=== PATIENT | male | born 1960 | race Caucasian/White ===

== ENCOUNTER 2020-07-04 07:30 | Inpatient (IN) | payer OTHER ==
[2020-07-04 07:55] LABS: #Eosinphils 0.1 thou/uL (0.0-0.7); #Lymphocytes 1.4 thou/uL (1.20-3.40); #Monocytes 1.6 thou/uL (0.11-0.59); #Neutrophils 7.9 thou/uL (1.40-6.50); %Basophils 0.4 % (0.0-1.0); %Eosinophils 0.9 % (0.0-10.0); %Lymphocytes 12.5 % (21.0-51.0); %Monocytes 14.2 % (0.0-10.0); %Neutrophils 71.9 % (42.0-75.0); Hemoglobin 10.8 g/dL (14.0-18.0); Mean Corpuscular HGB CONC 31.5 g/dL (32.0-36.0); Mean Corpuscular Hemoglobin 25.5 pg (27.0-31.0); Mean Corpuscular Volume 80.8 fL (78.0-98.0); Mean Platelet Volume 8.5 fL (7.4-10.4); Platelet Count 179 thou/uL (130-400); Red Blood Cell (RBC) Count 4.23 mill/uL (4.70-6.10)
[2020-07-04 08:07] LABS: INR-International Normal Ratio 1.1; PTT 32.1 sec (22.9-36.1); Prothrombin Time 14.9 sec (12.0-14.7)
--- NOTE | 2020-07-04 08:14 | RAD ---
EXAM: Single view of the chest HISTORY: Cough and shortness of breath COMPARISON: 05/30/2014 FINDINGS: Single view of the chest shows a normal sized cardiomediastinal silhouette. There is bilat eral pulmonary vascular enlargement. Increased interstitial markings are present. There is questionable opacity in the left costophrenic angle. No acute osseous abnormality. IMPRESSION: Left basilar atelectasis versus infiltrate.
[2020-07-04 08:23] LABS: ALT (SGPT) 35 U/L (8-55); AST (SGOT) 69 U/L (5-34); Albumin 3.8 g/dL (3.4-4.8); Alkaline Phosphatase 75 U/L (40-110); Anion Gap 15 mmol/L (10-20); BUN (Urea Nitrogen) 35 mg/dL (8.4-25.7); Bilirubin, Total 1.7 mg/dL (0.2-1.2); CK (CPK) 806 U/L (30-200); Calc. Creatinine Clearance 0 mL/min (70-130); Calcium 8.8 mg/dL (7.8-10.44); Carbon Dioxide 22 mmol/L (23-31); Chloride 104 mmol/L (98-107); Globulin 3.7 g/dL (2.4-3.5); Glucose 222 mg/dL (80-115); Potassium 4.2 mmol/L (3.5-5.1); Protein, Total 7.5 g/dL (5.8-8.1); Sodium 137 mmol/L (136-145)
[2020-07-04] MEDS ORDERED: Albumin 5% 500 ML ONE (09:26)
[2020-07-04] MEDS ORDERED: EPINEPHrine 1 MG/ML AMP ONE (09:26)
[2020-07-04] MEDS ORDERED: Bupivacaine PF 0.5% 30 ML VIAL ONE (09:26)
[2020-07-04] MEDS ORDERED: Dexamethasone 4 mg/ml Vial ONE (09:26)
[2020-07-04] MEDS ORDERED: Midazolam HCl 5 mg/5 ml Vial ONE (09:43)
[2020-07-04] MEDS ORDERED: Midazolam HCl 2 mg/2 ml Vial ONE (09:43)
[2020-07-04] MEDS ORDERED: Fentanyl 100 MCG/2 ML VIAL ONE (09:43)
[2020-07-04] MEDS ORDERED: Vecuronium 10 MG VIAL ONE ×3 (09:44→12:58)
[2020-07-04] MEDS ORDERED: Dexmedetomidine 200 MCG/2 ML VIAL ONE (09:44)
[2020-07-04] MEDS ORDERED: Heparin 10,000 UNITS/1 ML VIAL 30,000 UNITS in Sodium Chloride 0.9% 1,000 ML FS SCH (09:45)
--- NOTE | 2020-07-04 10:02 | HP ---
INDICATION FOR ADMISSION: Acute inferior myocardial infarction, ST-segment elevation IN. HISTORY OF PRESENT ILLNESS: This is a very pleasant 60-year-old gentleman, started feeling bad on Tuesday. He went to the emergency room. He was checked out and was found to be negative for COVID. He had complaints of shortness of breath and chest tightness. He then presented again today to the emergency room here in [facility], complaining of some chest discomfort. He underwent further evaluation and EKG was noted to have ST-segment elevation inferiorly compatible with acute inferior ST-segment elevation myocardial infarction inferiorly. He also continued to have some chest discomfort. He rated about 4 to 5/10. His cardiac enzymes are positive for myocardial infarction. He was advised to undergo acute cardiac catheterization with possible intervention. He has had no previous cardiac history. He does have hypertension and also has dyslipidemia as well as diabetes. He has had insulin-dependent diabetes for about 10 years. He has had no other significant past medical history. I think he has had some cholecystectomy in the past and had back surgery on 3 different occasions. SOCIAL HISTORY: He lives alone. He has no significant alcohol use. He smoked many years ago, but has not smoked for many years. He has adult children, who are alive and well. No significant family history of coronary artery disease. ALLERGIES: NONE. MEDICATIONS: Included, 1. Levemir Flexpen, he takes 15 units twice a day. 2. Lisinopril 20 mg once a day. 3. Metformin 1000 mg twice a day. 4. He takes insulin, NovoLog FlexPen 10 units twice a day with meals. 5. Pravastatin 40 mg once a day. REVIEW OF SYSTEMS: A 12-point review of systems is unremarkable except what is noted in the history of present illness. He denies any HEENT complaints. No GI complaints. neurological complaints. No urological complaints and no other significant complaints except what is noted in the history of present illness with his shortness of breath and chest tightness. PHYSICAL EXAMINATION: GENERAL: Reveals a well-developed, well-nourished gentleman. VITAL SIGNS: Blood pressure at this time is 92/56, heart rate is 88 and regular. He has a sinus rhythm, O2 saturations are stable. He has a respiratory rate of about 18 breaths per minute. He is afebrile. HEENT: Shows the head to be normocephalic and atraumatic. CHEST: Clear to auscultation without rales, rhonchi, or wheezing. CARDIOVASCULAR: Reveals a regular rate and rhythm at this time. He has normal S1, S2. I cannot hear any significant murmurs, heaves, thrills, bruits, or rubs. ABDOMEN: Soft and nontender. Positive bowel sounds are present. EXTREMITIES: Show no clubbing, cyanosis, or edema. NEUROLOGIC: He appears to be fully intact , no gross focal motor deficits. DIAGNOSTIC STUDIES: His EKG is noted above shows ST-segment elevation inferiorly compatible with an ST-segment elevation myocardial infarction. He has some nonspecific T-waves laterally. He has decreased R-wave progression in V1 and V2. LABORATORY DATA: His WBC is 11, hemoglobin is 10.8, and platelet count is 170,000. His sodium was 137, did not see measurement of the potassium, CO2 was 22, chloride was 104, BUN was 35, and creatinine is 1.82 and in 2017 was 1.53. Blood sugar is 222. Total bilirubin was 1.7, which is elevated. AST was 69. His CPK was 806 with a CPK MB of 16 and troponin I of 13.7. He is negative for COVID. Urinalysis was not done. INR was 1.1. His chest x-ray was performed today. This shows some left basilar atelectasis with possible infiltrate. IMPRESSION: 1. Acute inferior myocardial infarction with ST-segment elevation. He will be taken to the cardiac electrical laboratory technician. I explained the procedure and the risks to him to include bleeding, infection, possible myocardial infarction, cerebrovascular accident, renal insufficiency, allergic contrast reaction, even the possibility of . He understands and agrees to proceed. We will plan for urgent or emergent cardiac catheterization. 2. History of hypertension. His blood pressure is actually on the low side at this time. We will hold his medications. He has been on lisinopril in the past. Given his renal insufficiency and his hypotension at this time, we will hold that medication. 3. Hypercholesterolemia. We will switch him over Lipitor 40 mg once a day from his pravastatin. I do not have a cholesterol level. This will be need to be evaluated. We will certainly try to find any recent laboratory data. 4. Insulin-dependent diabetes. We will continue with sliding scale insulin. We will ask the hospitalist service for consultation. 5. What appears to be a severe 3-vessel coronary artery disease by cardiac catheterization. The left anterior descending artery is 100% occluded. The distal left circumflex is 100% occluded, the right coronary is 100% occluded. The right coronary is a nondominant vessel. It was very small, which fills by collaterals. The distal left anterior descending artery was also seen filling late by some collaterals as well as the distal obtuse marginal branches and posterior descending artery from the circumflex also seen filling by some collaterals. 6. History of cardiomyopathy. Ejection fraction is 20% to 25% by left ventriculogram. This is ischemic cardiomyopathy, which may improve if the patient undergoes revascularization. We will discuss this case with the CT surgeons for a rather urgent bypass surgery. Job ID: [id number] [facility]rika
[2020-07-04] MEDS ORDERED: Milrinone 10 MG/10 ML VIAL ONE (10:05)
[2020-07-04] MEDS ORDERED: CEFAZOLIN 2 GM in Premix Bag 1 BAG IVPB SCH (10:30)
--- NOTE | 2020-07-04 10:53 | CON ---
DATE OF CONSULTATION: 07/04/2020 HISTORY OF PRESENT ILLNESS: Mr. Mccarthy is a 60-year-old gentleman, who presented to the emergency department with chest pain today. He was found to have positive troponins. He was taken to the labour market economist and found to have severe three-vessel disease. Right coronary is nondominant and occluded. His LAD is occluded. The first diagonal, which is a large branch has critical stenosis. The highest OM is widely patent. The terminal OM, which terminates in a left-sided PDA is occluded. Ejection fraction on ventriculogram is approximately 20%. I have been asked to see him for emergency coronary artery bypass grafting. PAST MEDICAL HISTORY: 1. Hypertension. 2. Diabetes mellitus. 3. Dyslipidemia. SOCIAL HISTORY: He lives alone. He does not use alcohol. He smoked many years ago, but has quit. ALLERGIES: NONE. CURRENT MEDICATIONS: 1. Levemir 15 units b.i.d. 2. Lisinopril 20 mg daily. 3. Metformin 1000 mg b.i.d. 4. NovoLog 10 units with meals. 5. Pravastatin 40 mg daily. REVIEW OF SYSTEMS: Not performed due to the acuity of situation. PHYSICAL EXAMINATION: GENERAL: This is a very pleasant, well-developed, well-nourished male, resting comfortably in the recovery room. VITAL SIGNS: His temperature is 98.8, pulse is 60 and regular. He is in sinus rhythm. Blood pressure is 130/72. HEENT: Sclerae nonicteric. Pupils equally round bilaterally. NECK: Supple without bruits. CHEST: Clear bilaterally. HEART: Rhythm is regular without murmur. ABDOMEN: Soft and nontender. EXTREMITIES: There is no edema. VASCULAR: Palpable carotid, radial, femoral, or dorsalis pedis pulses bilaterally. VENOUS: There are no venous varicosities or venous stasis changes. PSYCHIATRIC: He is awake, alert, and oriented to person, place, and time. LABORATORY DATA: Of note, hemoglobin is 10.8, platelet count is 179,000. Creatinine is 1.82, potassium is 4.2, troponin is 34. PT/INR is 1.1 with a PTT of 32. Chest x-ray has been performed in the emergency department, which shows no dominant lung mass. Lung mann are clear bilaterally. ASSESSMENT AND PLAN: For urgent coronary artery bypass grafting, potential targets included LAD, first diagonal branch, and terminal OM. It has been discussed with the patient, he is agreeable for us to proceed. Job ID: [id number]
[2020-07-04] MEDS ORDERED: PHENYLEPHRINE-NS 100 MCG/ML 10 ML SYRINGE ONE ×2 (12:20→12:58)
[2020-07-04] MEDS ORDERED: Lidocaine 2% PF 100 mg/5 ml Syringe ONE (12:58)
[2020-07-04] MEDS ORDERED: Glycopyrrolate 0.2 MG/ML 5 ML SYRINGE ONE (12:58)
[2020-07-04] MEDS ORDERED: Norepinephrine 4 MG/4 ML VIAL ONE (12:58)
[2020-07-04] MEDS ORDERED: ePHEDrine 50 MG/ML VIAL ONE (12:58)
[2020-07-04] MEDS ORDERED: Lidocaine 1% PF 5 ML VIAL ONE ×2 (12:58)
[2020-07-04] MEDS ORDERED: Ondansetron PF 4 MG/2 ML Vial ONE (12:58)
[2020-07-04] MEDS ORDERED: Heparin 5,000 UNITS/ML VIAL ONE (12:58)
[2020-07-04] MEDS ORDERED: Sodium Bicarb 50 MEQ/50 ML Abboject 8.4% SYRINGE ONE (12:58)
[2020-07-04] MEDS ORDERED: Heparin 30,000 units/30 ml VIAL ONE (12:58)
[2020-07-04] MEDS ORDERED: Thrombin 5000 UNITS/5 ML VIAL ONE (12:58)
[2020-07-04] MEDS ORDERED: Papaverine 60 MG/2 ML VIAL ONE (12:58)
[2020-07-04] MEDS ORDERED: Magnesium Sulfate 1 GM/2 ML VIAL ONE (12:58)
[2020-07-04] MEDS ORDERED: Protamine Sulfate 250 MG/25 ML VIAL ONE (12:58)
[2020-07-04] MEDS ORDERED: Nitroglycerin 50 MG/250 ML BOT ONE (12:58)
[2020-07-04] MEDS ORDERED: Aminocaproic Acid 5 GM/20 ML VIAL ONE (12:58)
[2020-07-04] MEDS ORDERED: Cardioplegic Soln 1,000 ML BAG ONE (12:58)
[2020-07-04] MEDS ORDERED: Calcium Chloride 1 GM/10 ML Abboject SYRINGE ONE (12:58)
[2020-07-04] MEDS ORDERED: Dexamethasone 20 MG/5 ML VIAL ONE (12:58)
[2020-07-04] MEDS ORDERED: Mannitol 12.5 GM/50 ML ONE (12:58)
[2020-07-04] MEDS ORDERED: Potassium Chloride 60 MEQ/30 ML VIAL ONE (12:58)
[2020-07-04] MEDS ORDERED: Ketorolac Tromethamine 30 MG/ML VIAL ONE (12:58)
[2020-07-04] MEDS ORDERED: Nitroglycerin 50 MG/250 ML BOT 250 ML IVPB PRN (14:00)
[2020-07-04] MEDS ORDERED: Guaifenesin DM 100-10/5 ML UDCUP PO PRN (14:00)
[2020-07-04] MEDS ORDERED: Acetaminophen 325 MG TAB PO PRN (14:00)
[2020-07-04] MEDS ORDERED: Mag-Al 1200 mg/1200 mg/30 ML UDCUP PO PRN (14:00)
[2020-07-04] MEDS ORDERED: Bisacodyl 10 MG SUPP PR PRN (14:00)
[2020-07-04] MEDS ORDERED: Post-Op Insulin Drip Protocol IVPB ONE (14:00)
[2020-07-04] MEDS ORDERED: Fentanyl 100 MCG/2 ML VIAL SLOW IVP PRN ×2 (14:00)
[2020-07-04] MEDS ORDERED: Bisacodyl 5 MG TAB PO PRN (14:00)
[2020-07-04] MEDS ORDERED: Norepinephrine 8 MG/0.9% NS 250 ML IVPB PRN (14:00)
[2020-07-04] MEDS ORDERED: Hetastarch 6% 500 ML 500 ML IVPB PRN (14:00)
[2020-07-04] MEDS ORDERED: Ondansetron PF 4 MG/2 ML Vial IVP PRN (14:00)
[2020-07-04] MEDS ORDERED: HYDROcodone/Acetaminophen 5/325 mg Tablet PO PRN (14:00)
[2020-07-04] MEDS ORDERED: Morphine 2 MG/ML VIAL SLOW IVP PRN (14:00)
[2020-07-04] MEDS ORDERED: D5 1/2 NS w/20 mEq KCL 1,000 ML IV SCH (14:00)
[2020-07-04] MEDS ORDERED: Potassium Chloride 20 MEQ/100 ML PREMIX BAG IVPB PRN (14:00)
[2020-07-04] MEDS ORDERED: traMADol HCl 50 MG TAB PO PRN ×2 (14:00)
[2020-07-04] MEDS ORDERED: hydrALAZINE 20 MG/ML VIAL SLOW IVP PRN (14:00)
--- NOTE | 2020-07-04 14:13 | RAD ---
XR Chest 1 View Portable History: Post open heart surgery Comparison: Radiograph same day Findings: Defibrillator pad has been removed. Multiple midline sternotomy wires. Right subclavian central venous catheter tip projects in the right atrium. The mediastinal drains are in good location. No high-grade pneumothorax. Trace effusions. Low-grade pulmonary edema. Old left mid clavicular fracture. Impression: Uncomplicated postoperative appearance.
[2020-07-04 14:14] LABS: Actual Bicarbonate (HCO3a) 21.4 mEq/L (22-28); Analyzer IN Cardio OR; Base Excess (BEa) -3.1 mEq/L (-2.0 to +3.0); Calcium, Ionized (arterial) 1.02 mmol/L (1.12-1.30); Carboxyhemoglobin (COHb) 1.1 gm% (0.0-3.0); Hemoglobin (Hb) 8.5 g/dL (14.0-18.0); O2 Tension (PaO2), arterial 475.5 mmHg (> 80.0); Potassium - ABG Lab 4.04 mmol/L (3.70-5.30); pH, Arterial 7.39 (7.35-7.45)
[2020-07-04 14:14] LABS: Analyzer IN Cardio OR; Base Excess (BEa) -5.8 mEq/L (-2.0 to +3.0); CO2 Tension 46.9 mmHg (35.0-45.0); Calcium, Ionized (arterial) 1.06 mmol/L (1.12-1.30); Carboxyhemoglobin (COHb) 0.8 gm% (0.0-3.0); Hemoglobin (Hb) 9.9 g/dL (14.0-18.0); O2 Tension (PaO2), arterial 112.6 mmHg (> 80.0); pH, Arterial 7.27 (7.35-7.45)
[2020-07-04 14:14] LABS: Actual Bicarbonate (HCO3a) 30.9 mEq/L (22-28); Analyzer IN Cardio OR; Base Excess (BEa) 4.1 mEq/L (-2.0 to +3.0); Calcium, Ionized (arterial) 0.87 mmol/L (1.12-1.30); Carboxyhemoglobin (COHb) 1.2 gm% (0.0-3.0); Hemoglobin (Hb) 8.5 g/dL (14.0-18.0); O2 Tension (PaO2), arterial 230.8 mmHg (> 80.0); Potassium - ABG Lab 3.71 mmol/L (3.70-5.30); pH, Arterial 7.33 (7.35-7.45)
[2020-07-04 14:15] LABS: Actual Bicarbonate (HCO3a) 22.5 mEq/L (22-28); Analyzer IN Cardio OR; Base Excess (BEa) -3.5 mEq/L (-2.0 to +3.0); CO2 Tension 44.7 mmHg (35.0-45.0); Calcium, Ionized (arterial) 1.08 mmol/L (1.12-1.30); Carboxyhemoglobin (COHb) 0.3 gm% (0.0-3.0); Hemoglobin (Hb) 9.5 g/dL (14.0-18.0); Potassium - ABG Lab 3.89 mmol/L (3.70-5.30); pH, Arterial 7.32 (7.35-7.45)
[2020-07-04 14:15] LABS: Actual Bicarbonate (HCO3a) 19.6 mEq/L (22-28); Analyzer IN Cardio OR; Base Excess (BEa) -5.9 mEq/L (-2.0 to +3.0); CO2 Tension 38.8 mmHg (35.0-45.0); Calcium, Ionized (arterial) 0.97 mmol/L (1.12-1.30); Carboxyhemoglobin (COHb) 1.2 gm% (0.0-3.0); Hemoglobin (Hb) 9.3 g/dL (14.0-18.0); O2 Tension (PaO2), arterial 137.8 mmHg (> 80.0); Puncture Site Arterial Line; pH, Arterial 7.32 (7.35-7.45)
[2020-07-04 14:15] LABS: Analyzer IN Cardio OR; Base Excess (BEa) -2.8 mEq/L (-2.0 to +3.0); CO2 Tension 44.8 mmHg (35.0-45.0); Calcium, Ionized (arterial) 1.11 mmol/L (1.12-1.30); Carboxyhemoglobin (COHb) 1.3 gm% (0.0-3.0); Hemoglobin (Hb) 7.9 g/dL (14.0-18.0); O2 Tension (PaO2), arterial 155.3 mmHg (> 80.0); Potassium - ABG Lab 3.79 mmol/L (3.70-5.30); pH, Arterial 7.33 (7.35-7.45)
[2020-07-04] MEDS ORDERED: Dextrose 50% Abboject 50 ML SYRINGE SLOW IVP PRN (14:15)
[2020-07-04] MEDS ORDERED: Dextrose 5% in Water 1,000 ML IV PRN (14:15)
[2020-07-04] MEDS ORDERED: Insulin Regular 300 UNITS/3 ML VIAL SC PRN (14:15)
[2020-07-04] MEDS ORDERED: Magnesium 2 GM/50 ML 2 GM in Premix Bag 1 BAG IVPB SCH (14:15)
[2020-07-04] MEDS ORDERED: HUMULIN R 100 UNITS in Sodium Chloride 0.9% 100 ML IVPB SCH (14:15)
[2020-07-04 14:16] LABS: Puncture Site Arterial Line
[2020-07-04 14:17] LABS: CO2 Tension 60.4 mmHg (35.0-45.0); Puncture Site Arterial Line
[2020-07-04 14:18] LABS: Puncture Site Arterial Line
[2020-07-04 14:18] LABS: Puncture Site Arterial Line
[2020-07-04 14:19] LABS: O2 Tension (PaO2), arterial 563.5 mmHg (> 80.0); Puncture Site Arterial Line
[2020-07-04 14:20] LABS: #Eosinphils 0.1 thou/uL (0.0-0.7); #Lymphocytes 1.2 thou/uL (1.20-3.40); #Monocytes 1.4 thou/uL (0.11-0.59); #Neutrophils 13.9 thou/uL (1.40-6.50); %Basophils 0.3 % (0.0-1.0); %Eosinophils 0.6 % (0.0-10.0); %Lymphocytes 7.1 % (21.0-51.0); %Monocytes 8.2 % (0.0-10.0); %Neutrophils 83.9 % (42.0-75.0); Hemoglobin 10.5 g/dL (14.0-18.0); Mean Corpuscular HGB CONC 31.8 g/dL (32.0-36.0); Mean Corpuscular Hemoglobin 25.2 pg (27.0-31.0); Mean Corpuscular Volume 79.5 fL (78.0-98.0); Mean Platelet Volume 8.7 fL (7.4-10.4); Platelet Count 181 thou/uL (130-400); RBC Distribution Width 13.8 % (11.5-14.5); Red Blood Cell (RBC) Count 4.16 mill/uL (4.70-6.10); White Blood Cell (WBC) Count 16.6 thou/uL (4.8-10.8)
[2020-07-04 14:27] LABS: INR-International Normal Ratio 1.4; PTT 28.3 sec (22.9-36.1); Prothrombin Time 17.5 sec (12.0-14.7)
[2020-07-04 14:45] LABS: Anion Gap 14 mmol/L (10-20); BUN (Urea Nitrogen) 34 mg/dL (8.4-25.7); Calc. Creatinine Clearance 0 mL/min (70-130); Calcium 8.3 mg/dL (7.8-10.44); Carbon Dioxide 21 mmol/L (23-31); Chloride 108 mmol/L (98-107); Glucose 153 mg/dL (80-115); Potassium 3.9 mmol/L (3.5-5.1); Sodium 139 mmol/L (136-145)
[2020-07-04] MEDS ORDERED: Norepinephrine 16 MG in Dextrose 5% in Water 234 ML IVPB PRN (15:30)
[2020-07-04] MEDS ORDERED: Heparin 10,000 UNITS/ 10 ML VIAL ONE (17:19)
[2020-07-04] MEDS ORDERED: Aspirin Chewable 81 MG TAB ONE (17:19)
--- NOTE | 2020-07-04 17:23 | OP ---
DATE OF PROCEDURE: 07/04/2020 PREOPERATIVE DIAGNOSES: Coronary artery disease/hypertension/dyslipidemia/diabetes mellitus/acute ST-elevation myocardial infarction. POSTOPERATIVE DIAGNOSES: Coronary artery disease/hypertension/dyslipidemia/diabetes mellitus/acute ST-elevation myocardial infarction. PROCEDURES PERFORMED: Emergency coronary artery bypass grafting x3 - 1. Left internal mammary artery to 2.0 mm mid left anterior descending - good conduit and target. 2. Reverse saphenous vein to 2.0 mm diagonal - good conduit and target. 3. Reverse saphenous vein to 2.0 mm terminal obtuse marginal - good conduit target. CLOUD SECURITY ARCHITECT: Kavin Lobo MD ANESTHESIA: General endotracheal, Dr. Matti Bronson. PUMP TIME: 55 minutes. CROSS-CLAMP TIME: 30 minutes. LOW-CORE TEMPERATURE: 34 degrees Celsius. NETWORK ANNOUNCER: Samuel Edge. DRAINS: 19 and 24-Andorran Jonathan drain. TRANSFUSIONS: None. DRIPS: Levophed at 10 mcg per kg per minute. DESCRIPTION OF PROCEDURE: After consent was obtained, the patient was brought to the operating room and placed in supine position on the operating table. Appropriate central line and monitors were placed and general endotracheal anesthesia was induced. The patient's hemodynamics remained stable throughout the initial portion of the operation while we were harvesting conduit. Chest and legs were prepped and draped in usual sterile fashion. Greater saphenous vein was harvested from the left lower extremity utilizing an endoscopic technique. Wounds irrigated and closed in layers. Median sternotomy was performed. Left internal mammary artery was harvested as a pedicle graft. The patient was systemically heparinized. Distal pedicle was divided and infused with papaverine. Thymic fat and pericardium were divided with electrocautery. Pericardial stay sutures were placed. Aortic and atrial cannulation was performed. After adequate heparinization, retrograde prime was performed. The patient was placed on cardiopulmonary bypass. Distal targets were marked. Aortic cross-clamp was applied and antegrade sanguineous cardioplegic arrest was obtained. 1 L of antegrade cold [place] cardioplegia was given. Topical cold solution was used. Reverse saphenous vein was anastomosed to the terminal OM in end-to-side fashion with running 7-0 Prolene suture. Anastomosis was tested and was hemostatic. The lateral and inferior goodman of the heart were obviously involved in the infarction acutely. Reverse saphenous vein was anastomosed to diagonal in end-to-side fashion with running 7-0 Prolene suture. Anastomosis was tested and was hemostatic. Mammary artery was brought through a window in pericardium and anastomosed to the mid LAD in end-to-side fashion with running 7-0 Prolene suture. On release of mammary clamps, good hooding of the anastomosis and good distal flow. Pedicle was secured with interrupted 6-0 Prolene suture. Cross-clamp was removed and partial occluding clamp placed. Saphenous vein to the diagonal was anastomosed to the aortic root. Saphenous vein to the OM was anastomosed to the stang of the diagonal graft. Partial occluding clamp was removed and graft was deaired. Anastomoses were inspected for hemostasis, which was good. The patient was warmed and weaned from cardiopulmonary bypass. After resumption of sinus rhythm, good hemodynamics, temperature greater than 36.5, bypass was discontinued. Transfusion was given. Protamine was administered. Decannulation performed in pursestring suture. A 19-Andorran and 24-Andorran Jonathan drain were placed in mediastinum. Sternum was treated with vancomycin paste. After adequate hemostasis had been obtained, sternum closed with #7 wire. Sternum was treated with platelet rich plasma. Wires were twisted and buried. Wounds irrigated, treated with platelet poor plasma and closed in multiple layers. Needle, sponge, and instrument counts were all reported as correct at the end of the procedure. The patient tolerated the procedure well, was transferred to the intensive care unit in stable condition. Job ID: [id number]
[2020-07-04] MEDS: CEFAZOLIN 2 GM in Premix Bag 1 BAG IVPB SCH (17:36)
[2020-07-04] MEDS ORDERED: Iopamidol 370 76% 100 ML VIAL ONE (17:39)
[2020-07-04 19:50] LABS: Potassium 4.4 mmol/L (3.5-5.1)
[2020-07-04] MEDS: Famotidine/PF 20 mg/2ml Vial SLOW IVP SCH (21:33)
[2020-07-05] MEDS: CEFAZOLIN 2 GM in Premix Bag 1 BAG IVPB SCH ×2 (02:04→09:17)
[2020-07-05 04:37] LABS: #Lymphocytes 0.6 thou/uL (1.20-3.40); #Monocytes 1.4 thou/uL (0.11-0.59); #Neutrophils 9.6 thou/uL (1.40-6.50); %Basophils 0.2 % (0.0-1.0); %Eosinophils 0.1 % (0.0-10.0); %Lymphocytes 5.3 % (21.0-51.0); %Neutrophils 82.4 % (42.0-75.0); Hemoglobin 9.6 g/dL (14.0-18.0); Mean Corpuscular HGB CONC 31.9 g/dL (32.0-36.0); Mean Corpuscular Hemoglobin 26.2 pg (27.0-31.0); Mean Corpuscular Volume 82.2 fL (78.0-98.0); Mean Platelet Volume 8.8 fL (7.4-10.4); Platelet Count 146 thou/uL (130-400); RBC Distribution Width 13.8 % (11.5-14.5); Red Blood Cell (RBC) Count 3.66 mill/uL (4.70-6.10); White Blood Cell (WBC) Count 11.7 thou/uL (4.8-10.8)
[2020-07-05 04:58] LABS: Anion Gap 16 mmol/L (10-20); BUN (Urea Nitrogen) 33 mg/dL (8.4-25.7); Calc. Creatinine Clearance 70 mL/min (70-130); Calcium 7.9 mg/dL (7.8-10.44); Carbon Dioxide 19 mmol/L (23-31); Chloride 110 mmol/L (98-107); Glucose 166 mg/dL (80-115); Potassium 4.7 mmol/L (3.5-5.1); Sodium 140 mmol/L (136-145)
[2020-07-05] MEDS ORDERED: Prevnar 13-Val Conj/PF 0.5 ML SYRINGE IM ONE (09:00)
[2020-07-05] MEDS: Aspirin 325 MG TAB PO SCH (09:16)
[2020-07-05] MEDS: Magnesium 2 GM/50 ML 2 GM in Premix Bag 1 BAG IVPB SCH (09:16)
[2020-07-05] MEDS: HYDROcodone/Acetaminophen 5/325 mg Tablet PO PRN ×2 (10:16→17:37)
[2020-07-05] MEDS ORDERED: Dextrose 5% in Water 1,000 ML IV PRN (10:50)
[2020-07-05] MEDS ORDERED: Dextrose 50% Abboject 50 ML SYRINGE SLOW IVP PRN (10:50)
[2020-07-05] MEDS ORDERED: DOBUTamine 500 mg/250 ml 250 ML IVPB SCH (11:00)
--- NOTE | 2020-07-05 11:04 | RAD ---
SINGLE VIEW CHEST: Date: 07/05/2020 COMPARISON: 07/04/2020. HISTORY: Status post open heart surgery. FINDINGS: Single view of the chest shows an enlarged but stable cardiomediastinal silhouette. The patient is st atus post sternotomy. The central venous catheter is unchanged in position. There is a left-sided jason st tube with a small left pleural effusion. No pneumothorax is visualized. No consolidation is seen. IMPRESSION: Small left pleural effusion. POS: EAA
--- NOTE | 2020-07-05 11:17 | PRG ---
DATE OF SERVICE: 07/05/2020 Obey Mccarthy has been stable overnight, extubated in the operating room. His vital signs have been stable, although he does have a resting heart rate of 99. He has not required his ventricular pacemaker. His blood pressure is running about 100. His hemoglobin is 9.6 and his creatinine is 1.57, which appears to be baseline for him. He is on an insulin infusion. He is awake, alert, without any significant complaints. His chest tubes were removed. His lungs are clear. Abdomen, soft. I will go ahead and start him on a dobutamine drip at 3 mcg/kg/minute for his poor EF and we will plan on leaving him on that for 2 to 3 days. We will start him on a diabetic diet. Resume portion of his long-acting insulin twice a day and he can probably be transferred out of the ICU if needed later today. Job ID: [id number]
--- NOTE | 2020-07-05 12:09 | PDOC.CPN ---
- Subjective Date: 07/05/20 Time: 12:08 - Review of Systems General: reports: weight/appetite/sleep changes, fatigue. denies: fever/chills, night sweats Respiratory: denies: cough, congestion, shortness of breath, exercise intolerance Cardiovascular: denies: chest pain, palpitation, edema, paroxysmal nocturnal dyspnea, orthopnea (soneness post op) Gastrointestinal: denies: nausea, vomiting, diarrhea, constipation, abd pain, GI bleeding Musculoskeletal: denies: pain, tenderness, stiffness, swelling, arthritis/arthralgias Neurological: denies: numbness, syncope, seizure, weakness - Objective Allergies/Adverse Reactions: Allergies Allergy/AdvReac Type Severity Reaction Status Date / Time No Known Drug Allergies Allergy Verified 11/29/14 10:33 Visit Medications: Current Medications Acetaminophen (Acetaminophen 325 Mg Tab) 650 mg PO Q6H PRN PRN Reason: Headache/Fever Or Mild Pain Hydrocodone Bitart/Acetaminophen (Hydrocodone/Acetaminophen 5/325 Mg Tablet) 1 tab PO Q4H PRN PRN Reason: Moderate Pain (4-6) Hydrocodone Bitart/Acetaminophen (Hydrocodone/Acetaminophen 5/325 Mg Tablet) 2 tab PO Q4H PRN PRN Reason: Severe Pain (7-10) Last Admin: 07/05/20 10:16 Dose: 2 tab Documented by: Al Hydroxide/Mg Hydroxide (Mag-Al 1200 Mg/1200 Mg/30 Ml Udcup) 30 ml PO Q4H PRN PRN Reason: Indigestion Albumin Human (Albumin 5% 12.5 Gm/250 Ml Bot) 12.5 gm IVPB Q6H PRN PRN Reason: To Maintain SBP> 90 mmHG Stop: 07/05/20 14:01 Albumin Human (Albumin 5% 12.5 Gm/250 Ml Bot) 25 gm IVPB Q6H PRN PRN Reason: To Maintain SBP > 90 mmHG Stop: 07/05/20 14:01 Last Admin: 07/05/20 00:28 Dose: 25 gm Documented by: Albuterol/Ipratropium (Ipratropium/Albuterol Sulfate 3 Ml Neb) 3 ml NEB [id number] PRN PRN Reason: SOB Aspirin (Aspirin 325 Mg Tab) 325 mg PO DAILY LATRICIA Last Admin: 07/05/20 09:16 Dose: 325 mg Documented by: Atorvastatin Calcium (Atorvastatin Calcium 10 Mg Tab) 10 mg PO HS [facility] Bisacodyl (Bisacodyl 5 Mg Tab) 10 mg PO Q12H PRN PRN Reason: Constipation Bisacodyl (Bisacodyl 10 Mg Supp) 10 mg MA Q12H PRN PRN Reason: Constipation Dextrose/Water (Dextrose 50% Abboject 50 Ml Syringe) 25 gm SLOW IVP PRN PRN PRN Reason: Hypoglycemia Famotidine (Famotidine/Pf 20 Mg/2ml Vial) 20 mg SLOW IVP QPM LATRICIA Last Admin: 07/04/20 21:33 Dose: 20 mg Documented by: Fentanyl (Fentanyl 100 Mcg/2 Ml Vial) 25 mcg SLOW IVP Q2H PRN PRN Reason: Moderate Pain (4-6) Stop: 07/06/20 13:33 Fentanyl (Fentanyl 100 Mcg/2 Ml Vial) 50 mcg SLOW IVP Q2H PRN PRN Reason: Severe Pain (7-10) Stop: 07/06/20 13:33 Glucagon (Glucagon 1 Mg/Ml Vial) 1 mg SC PRN PRN PRN Reason: PER HYPOGLYCEMIC PROTOCOL Glucagon (Glucagon 1 Mg/Ml Vial) 1 mg IM PRN PRN PRN Reason: Hypoglycemia Guaifenesin/Dextromethorphan (Guaifenesin Dm 100-10/5 Ml Udcup) 15 ml PO Q4H PRN PRN Reason: Cough Hetastarch/Sodium Chloride (Hespan) 500 mls @ 0 mls/hr IVPB PRN PRN PRN Reason: To Maintain SBP > 90mmHg Stop: 07/05/20 13:33 Nitroglycerin/Dextrose (Nitroglycerin 50 Mg/250 Ml Bot) 250 mls @ 0 mls/hr IVPB PRN PRN; Protocol PRN Reason: To Maintain SBP< 140mmHG Magnesium Sulfate 2 gm/ Device 50 mls @ 50 mls/hr IVPB QAM LATRICIA Stop: 07/06/20 09:59 Last Admin: 07/05/20 09:16 Dose: 50 mls Documented by: Norepinephrine Bitartrate 16 (mg/ Dextrose/Water) 250 mls @ 0 mls/hr IVPB INF PRN; Protocol PRN Reason: TO MAINTAIN MAP > 65 Dobutamine HCl/Dextrose (Dobutamine 500 Mg/250 Ml) 250 mls @ 9.52 mls/hr IVPB INF LATRICIA; Protocol Last Admin: 07/05/20 12:02 Dose: 250 mls Documented by: Dextrose/Water (D5w) 1,000 mls @ 0 mls/hr IV .Q0M PRN PRN Reason: Hypoglycemia Insulin Glargine 15 units/ (Miscellaneous Medication) 0.15 mls @ 0 mls/hr SC HS [place]RICIA Insulin Glargine 15 units/ (Miscellaneous Medication) 0.15 mls @ 0 mls/hr SC QAM [place] Insulin Human Regular (Insulin Regular 300 Units/3 Ml Vial) 0 units SC Q4H PRN; Protocol PRN Reason: POST OP SLIDING SCALE Insulin Human Regular (Insulin Regular 300 Units/3 Ml Vial) 0 units SC .MODERATE SLIDING SC PRN PRN Reason: Moderate Correctional Scale Ondansetron HCl (Ondansetron Pf 4 Mg/2 Ml Vial) 4 mg IVP Q6H PRN PRN Reason: Nausea/Vomiting Pioglitazone HCl (Pioglitazone Hcl 45 Mg Tab) 45 mg PO DAILY [facility] Potassium Chloride (Potassium Chloride 20 Meq/100 Ml Premix Bag) 20 meq IVPB PRN PRN PRN Reason: K level </= 4.0 Last Admin: 07/04/20 14:55 Dose: 20 meq Documented by: Sodium Chloride (Flush - Normal Saline 10 Ml Syringe) 10 ml IVF PRN PRN PRN Reason: Saline Flush Tramadol HCl (Tramadol Hcl 50 Mg Tab) 50 mg PO Q12H PRN PRN Reason: Pain 1-3 Tramadol HCl (Tramadol Hcl 50 Mg Tab) 100 mg PO Q12H PRN PRN Reason: Pain 4-6 Vital Signs & Weight: Vital Signs Temp Pulse Ox 07/05/20 08:01 95 07/05/20 08:00 98.5 F 100 07/05/20 01:45 100 Weight 233 lb 3.2 oz - Quality Measures Condition: Coronary Artery Disease CV meds: Beta Kevin: No (hypotension.on dobutamine), ELIZABETH/ARB: No (renal insuff. hypotension. resume soomn.), Statin: Yes, ASA: Yes - Physical Exam HEENT: normocephaly Neck: supple neck, no JVD/HJR Cardiac: regular rate and rhythm, other (friction rub present) Lungs: bibasilar rales Neuro: grossly intact Abdomen: unremarkable Extremities: no edema Skin: clear Musculoskeletal: normal range of motion - Labs Result Diagrams: 07/05/20 04:01 07/05/20 04:01 Troponin/CKMB CK-MB (CK-2) 16.0 ng/mL (0-6.6) H* 07/04/20 07:47 Troponin I 34.726 ng/mL (< 0.028) H* 07/04/20 07:47 - Diagnostic Chest x-ray Status: image reviewed by me (small left pleural effusion) - EKG Interpretation EKG: sinus rhythm - Assessment/Plan Assessment/Plan: 1. CAD, s/p CABG. s/p SD, likely culprit was the L-circ. 2. DM-reasonable control. 3. HTN- now mild hypotension. 4. CMY: ischemic. Check echo prior to d/c and in 1-2 months. Continue dobutamine for now. 5. CKD. stable. Follow.
[2020-07-05] MEDS: Insulin Regular 300 UNITS/3 ML VIAL SC PRN ×2 (17:36→21:00)
[2020-07-05] MEDS ORDERED: Insulin Glargine 15 UNITS in Pre-Filled Syringe 1 EACH SC SCH (21:00)
[2020-07-05] MEDS: Famotidine/PF 20 mg/2ml Vial SLOW IVP SCH (21:00)
[2020-07-05] MEDS ORDERED: Atorvastatin Calcium 10 MG TAB PO SCH (21:00)
[2020-07-06] MEDS: HYDROcodone/Acetaminophen 5/325 mg Tablet PO PRN ×4 (01:24→20:34)
[2020-07-06 04:30] LABS: #Eosinphils 0.1 thou/uL (0.0-0.7); #Lymphocytes 1.1 thou/uL (1.20-3.40); #Monocytes 1.1 thou/uL (0.11-0.59); #Neutrophils 6.9 thou/uL (1.40-6.50); %Basophils 0.2 % (0.0-1.0); %Eosinophils 0.6 % (0.0-10.0); %Monocytes 11.8 % (0.0-10.0); %Neutrophils 75.3 % (42.0-75.0); Hemoglobin 8.4 g/dL (14.0-18.0); Mean Corpuscular HGB CONC 31.6 g/dL (32.0-36.0); Mean Corpuscular Hemoglobin 25.3 pg (27.0-31.0); Mean Platelet Volume 8.9 fL (7.4-10.4); Platelet Count 157 thou/uL (130-400); RBC Distribution Width 13.9 % (11.5-14.5); Red Blood Cell (RBC) Count 3.31 mill/uL (4.70-6.10); White Blood Cell (WBC) Count 9.2 thou/uL (4.8-10.8)
[2020-07-06 05:14] LABS: Anion Gap 13 mmol/L (10-20); BUN (Urea Nitrogen) 45 mg/dL (8.4-25.7); Calc. Creatinine Clearance 72 mL/min (70-130); Carbon Dioxide 22 mmol/L (23-31); Chloride 104 mmol/L (98-107); Glucose 260 mg/dL (80-115); Potassium 5.1 mmol/L (3.5-5.1); Sodium 134 mmol/L (136-145)
[2020-07-06 06:29] VITALS: BMI 29.7
[2020-07-06] MEDS: Insulin Regular 300 UNITS/3 ML VIAL SC PRN ×4 (06:47→16:53)
[2020-07-06] MEDS ORDERED: Insulin Glargine 15 UNITS in Pre-Filled Syringe 1 EACH SC SCH ×2 (09:00→09:16)
[2020-07-06] MEDS: Aspirin 325 MG TAB PO SCH (09:16)
[2020-07-06] MEDS: Pioglitazone HCl 45 MG TAB PO SCH (09:17)
[2020-07-06] MEDS: Magnesium 2 GM/50 ML 2 GM in Premix Bag 1 BAG IVPB SCH (09:19)
--- NOTE | 2020-07-06 10:25 | PDOC.CPN ---
- Subjective Date: 07/06/20 Time: : - Review of Systems General: denies: fever/chills, weight/appetite/sleep changes, night sweats, fatigue Respiratory: denies: cough, congestion, shortness of breath, exercise intolerance Cardiovascular: denies: chest pain, palpitation, edema, paroxysmal nocturnal dyspnea, orthopnea Gastrointestinal: denies: nausea, vomiting, diarrhea, constipation, abd pain, GI bleeding Musculoskeletal: denies: pain, tenderness, stiffness, swelling, arthriti s/arthralgias Neurological: denies: numbness, syncope, seizure, weakness - Objective Allergies/Adverse Reactions: Allergies Allergy/AdvReac Type Severity Reaction Status Date / Time No Known Drug Allergies Allergy Verified 11/29/14 10:33 Visit Medications: Current Medications Acetaminophen (Acetaminophen 325 Mg Tab) 650 mg PO Q6H PRN PRN Reason: Headache/Fever Or Mild Pain Hydrocodone Bitart/Acetaminophen (Hydrocodone/Acetaminophen 5/325 Mg Tablet) 1 tab PO Q4H PRN PRN Reason: Moderate Pain (4-6) Hydrocodone Bitart/Acetaminophen (Hydrocodone/Acetaminophen 5/325 Mg Tablet) 2 tab PO Q4H PRN PRN Reason: Severe Pain (7-10) Last Admin: 07/06/20 09:16 Dose: 2 tab Documented by: Al Hydroxide/Mg Hydroxide (Mag-Al 1200 Mg/1200 Mg/30 Ml Udcup) 30 ml PO Q4H PRN PRN Reason: Indigestion Albuterol/Ipratropium (Ipratropium/Albuterol Sulfate 3 Ml Neb) 3 ml NEB [id number] PRN PRN Reason: SOB Aspirin (Aspirin 325 Mg Tab) 325 mg PO DAILY [facility] Last Admin: 07/06/20 09:16 Dose: 325 mg Documented by: Atorvastatin Calcium (Atorvastatin Calcium 10 Mg Tab) 10 mg PO HS [facility] Last Admin: 07/05/20 21:00 Dose: 10 mg Documented by: Bisacodyl (Bisacodyl 5 Mg Tab) 10 mg PO Q12H PRN PRN Reason: Constipation Bisacodyl (Bisacodyl 10 Mg Supp) 10 mg MA Q12H PRN PRN Reason: Constipation Dextrose/Water (Dextrose 50% Abboject 50 Ml Syringe) 25 gm SLOW IVP PRN PRN PRN Reason: Hypoglycemia Famotidine (Famotidine/Pf 20 Mg/2ml Vial) 20 mg SLOW IVP QPM [facility] Last Admin: 07/05/20 21:00 Dose: 20 mg Documented by: Fentanyl (Fentanyl 100 Mcg/2 Ml Vial) 25 mcg SLOW IVP Q2H PRN PRN Reason: Moderate Pain (4-6) Stop: 07/06/20 13:33 Fentanyl (Fentanyl 100 Mcg/2 Ml Vial) 50 mcg SLOW IVP Q2H PRN PRN Reason: Severe Pain (7-10) Stop: 07/06/20 13:33 Furosemide (Furosemide 40 Mg Tab) 40 mg PO DAILY[facility] Glucagon (Glucagon 1 Mg/Ml Vial) 1 mg SC PRN PRN PRN Reason: PER HYPOGLYCEMIC PROTOCOL Glucagon (Glucagon 1 Mg/Ml Vial) 1 mg IM PRN PRN PRN Reason: Hypoglycemia Guaifenesin/Dextromethorphan (Guaifenesin Dm 100-10/5 Ml Udcup) 15 ml PO Q4H PRN PRN Reason: Cough Nitroglycerin/Dextrose (Nitroglycerin 50 Mg/250 Ml Bot) 250 mls @ 0 mls/hr IVPB PRN PRN; Protocol PRN Reason: To Maintain SBP< 140mmHG Norepinephrine Bitartrate 16 (mg/ Dextrose/Water) 250 mls @ 0 mls/hr IVPB INF PRN; Protocol PRN Reason: TO MAINTAIN MAP > 65 Dobutamine HCl/Dextrose (Dobutamine 500 Mg/250 Ml) 250 mls @ 9.52 mls/hr IVPB INF [facility]; Protocol Last Admin: 07/05/20 12:02 Dose: 250 mls Documented by: Dextrose/Water (D5w) 1,000 mls @ 0 mls/hr IV .Q0M PRN PRN Reason: Hypoglycemia Insulin Glargine 15 units/ (Miscellaneous Medication) 0.15 mls @ 0 mls/hr SC QAM [facility] Last Admin: 07/06/20 09:17 Dose: 0.15 mls Documented by: Insulin Glargine 15 units/ (Miscellaneous Medication) 0.15 mls @ 20 mls/hr SC HS [facility] Insulin Human Regular (Insulin Regular 300 Units/3 Ml Vial) 0 units SC Q4H PRN; Protocol PRN Reason: POST OP SLIDING SCALE Insulin Human Regular (Insulin Regular 300 Units/3 Ml Vial) 0 units SC .MODERATE SLIDING SC PRN PRN Reason: Moderate Correctional Scale Last Admin: 07/06/20 09:17 Dose: 4 unit Documented by: Ondansetron HCl (Ondansetron Pf 4 Mg/2 Ml Vial) 4 mg IVP Q6H PRN PRN Reason: Nausea/Vomiting Pioglitazone HCl (Pioglitazone Hcl 45 Mg Tab) 45 mg PO DAILY [facility] Last Admin: 07/06/20 09:17 Dose: 45 mg Documented by: Potassium Chloride (Potassium Chloride 20 Meq/100 Ml Premix Bag) 20 meq IVPB PRN PRN PRN Reason: K level </= 4.0 Last Admin: 07/04/20 14:55 Dose: 20 meq Documented by: Sodium Chloride (Flush - Normal Saline 10 Ml Syringe) 10 ml IVF PRN PRN PRN Reason: Saline Flush Tramadol HCl (Tramadol Hcl 50 Mg Tab) 50 mg PO Q12H PRN PRN Reason: Pain 1-3 Tramadol HCl (Tramadol Hcl 50 Mg Tab) 100 mg PO Q12H PRN PRN Reason: Pain 4-6 Vital Signs & Weight: Vital Signs Temp Pulse Ox 07/06/20 08:00 99.0 F 95 07/06/20 07:50 95 07/06/20 04:00 98.5 F 07/06/20 01:09 95 Weight 231 lb 11.2 oz - Quality Measures Condition: Coronary Artery Disease CV meds: Beta Kevin: No (hypotension.on dobutamine), ELIZABETH/ARB: No (renal insuff. hypotension. resume soomn.), Statin: Yes, ASA: Yes - Physical Exam HEENT: normocephaly Neck: supple neck, no JVD/HJR Cardiac: regular rate and rhythm, tachycardia Lungs: clear to auscultation Neuro: cranial nerve 2-12 intact, grossly intact Abdomen: unremarkable Extremities: no cyanosis, no edema Musculoskeletal: normal range of motion - Labs Result Diagrams: 07/06/20 04:00 07/06/20 04:00 Troponin/CKMB CK-MB (CK-2) 16.0 ng/mL (0-6.6) H* 07/04/20 07:47 Troponin I 34.726 ng/mL (< 0.028) H* 07/04/20 07:47 - Telemetry Sinus rhythms and dysrhythmias: sinus tachycardia - Assessment/Plan Assessment/Plan: 1. CAD, s/p CABG. s/p AL, likely culprit was the L-circ. 2. DM-reasonable control. 3. HTN- stable. 4. CMY: ischemic. Check echo prior to d/c and in 1-2 months. Continue dobutamine for now. HR is slightly tachy and BP stable, probably d/c tomorrow. 5. CKD. stable. Follow.
--- NOTE | 2020-07-06 10:30 | RAD ---
Exam: Chest one view HISTORY:Status post open heart surgery Comparison: 07/05/2020 FINDINGS: Cardiac silhouette:Negative. Sternotomy wires Lines and tubes: Stable right-sided subclavian vascular catheter Aorta: Unremarkable Pulmonary vessels: Normal Costophrenic angles: Small left sided pleural effusion LUNGS: Persistent lung parenchymal opacities in left lung base. Pneumothorax: None Osseous abnormalities: None IMPRESSION: Stable pleural and parenchymal changes left lung base
--- NOTE | 2020-07-06 12:03 | PRG ---
DATE OF SERVICE: 07/06/2020 SUBJECTIVE: The patient is postoperative day #2 following coronary artery bypass grafting and had no untoward events in the past 24 hours. He has a mild resting tachycardia and was started on dobutamine yesterday for poor left ventricular function. OBJECTIVE: VITAL SIGNS: His blood pressure is about 120 this morning. He has no complaints. LUNGS: Clear and his chest tubes were removed yesterday and his ventricular pacing wire was left in place. EXTREMITIES: Without edema. LABORATORY VALUES: His creatinine is stable at about 1.5, and his hemoglobin had drifted slightly to 8.4. Sugars have been elevated, and insulin will be adjusted upwards. ASSESSMENT AND PLAN: He has had a consult entered for hospitalist input concerning his insulin. We will transfer to the floor. Job ID: [id number]
--- NOTE | 2020-07-06 14:26 | CON ---
DATE OF CONSULTATION: PRIMARY CARE PHYSICIAN: He says is . REASON FOR CONSULTATION: Diabetes management. HISTORY OF PRESENT ILLNESS: Mr. Mccarthy is a very pleasant 60-year-old gentleman, who has a history of diabetes mellitus. He says for the last 12 years, also has a history of hypertension. He was in his usual state of health until the day he was admitted on 07/04/2020. At that time, he was complaining of some shortness of breath and chest tightness. He thought he may have COVID, but this was ruled out. It was found, however, that he had ST-segment elevation in his inferior leads and was found to have a STEMI. Cardiology was notified and he went emergently to cardiac catheterization. There, he was found to have three-vessel coronary artery disease and he was admitted. He underwent three-vessel bypass on 07/04/2020 and is currently doing very well. He is sitting up in bed, eating. He has no complaints. He has been tolerating a solid diet. He was noted to have an elevated blood glucose and for this reason, the Hospitalist Service was consulted. He tells me that his diabetes is generally well controlled. He says his last hemoglobin A1c was 6.8, and his fasting blood sugar was 99. He says he has been stable on his current regimen for years. REVIEW OF SYSTEMS: All systems were reviewed and are negative except for that mentioned in the history of present illness. PAST MEDICAL HISTORY: Significant for coronary artery disease, status post CABG on this admission; diabetes mellitus for 12 years; new onset systolic heart failure with an EF of 20% to 25% on this admission. PAST SURGICAL HISTORY: He had a three-vessel bypass on this admission. He has had three back surgeries in the past and a cholecystectomy in 2013. ALLERGIES: NO KNOWN DRUG ALLERGIES. SOCIAL HISTORY: He is . 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 He denies any smoking, but occasionally drinks alcohol. MEDICATIONS: Include, 1. Metformin 1000 mg twice daily. 2. Lisinopril 20 mg p.o. daily. 3. Levemir insulin 15 units twice a day. 4. NovoLog 10 units b.i.d. with meals. 5. Pravastatin 40 mg at bedtime. 6. Actos 45 mg p.o. daily. FAMILY HISTORY: Significant for diabetes in both parents. PHYSICAL EXAMINATION: GENERAL: He is alert and oriented. He appears to be in no acute distress. VITAL SIGNS: Blood pressure was 124/76, heart rate 92, respiratory rate of 13. He is afebrile with a temperature of 97.9. HEENT: Pupils are equal, round, and reactive. Extraocular muscles are intact. Sclerae anicteric. Throat; no erythema, no exudates. NECK: No adenopathy. No bruits. LUNGS: Clear to auscultation. No wheezing. No rales. No rhonchi. CARDIOVASCULAR: He has a normal S1 and S2. There is no S3 or S4. No murmurs, clicks, or rubs. ABDOMEN: Soft, nontender, nondistended. Positive for bowel sounds. No rebound. No guarding. No organomegaly. EXTREMITIES: There is no calf tenderness. No joint effusions. No significant edema other than slight 1+ edema and dorsalis pedis pulses are palpable. NEUROLOGIC: Nonfocal. SKIN AND INTEGUMENT: No skin changes. No rashes. LABORATORY DATA: Sodium 134, potassium 5.1, chloride is 104, CO2 is 22, BUN of 45, creatinine 1.59, glucose is 260. CBC; the white blood cell count is 9.2, hemoglobin 8.4, hematocrit is 26.4, and platelet count is 157. ASSESSMENT: 1. This is a pleasant 60-year-old gentleman, who was admitted for ST-segment elevated myocardial infarction. He is post three vessel bypass. He has diabetes and has had diabetes for 12 years. He states that his diabetes is generally well controlled with a recent hemoglobin A1c of 6.8 by report. He is tolerating a solid diet. Therefore, I agree with increasing his dose of long-acting insulin to his usual home dose of 25 units twice a day. Actos has already been restarted and since he is 2 days postop, it is safe to go ahead and restart metformin. I suspect that with these adjustments, his blood glucose will likely return towards normal. He will also be covered with a sliding scale insulin as well. 2. Coronary artery disease, status post coronary artery bypass grafting. Continue as per Cardiology recommendations. He is on aspirin, statin, and had recently been on dobutamine for cardiogenic support. Thank you for allowing us to participate in the care of this very nice gentleman. Job ID: [id number]
[2020-07-06] MEDS ORDERED: Nitroglycerin 0.4 MG TAB (25 Tab Bottle) SL PRN (14:45)
[2020-07-06] MEDS ORDERED: Zolpidem Tartrate 5 MG TAB PO PRN (14:45)
[2020-07-06] MEDS ORDERED: Dextrose 5% in Water 1,000 ML IV PRN (15:00)
[2020-07-06] MEDS ORDERED: Dextrose 50% Abboject 50 ML SYRINGE SLOW IVP PRN (15:00)
[2020-07-06] MEDS: metFORMIN 500 MG TAB PO SCH (16:10)
[2020-07-06 17:47] LABS: Glucose 237 mg/dL (80-115)
[2020-07-06] MEDS: Insulin Glargine 25 UNITS in Pre-Filled Syringe 1 EACH SC SCH (20:33)
[2020-07-06] MEDS: Enoxaparin Sodium 40 MG/0.4 ML SYRINGE SC SCH (20:33)
[2020-07-06] MEDS: Atorvastatin Calcium 10 MG TAB PO SCH (20:34)
[2020-07-06] MEDS: Famotidine 20 MG TAB PO SCH (20:35)
[2020-07-06] MEDS ORDERED: Atorvastatin Calcium 40 MG TAB PO SCH (21:00)
[2020-07-06 22:30] LABS: Glucose 218 mg/dL (80-115)
[2020-07-07] MEDS ORDERED: Aspirin 325 MG TAB ONE (07:49)
[2020-07-07] MEDS ORDERED: Pioglitazone HCl 45 MG TAB ONE (07:50)
[2020-07-07] MEDS ORDERED: Furosemide 40 MG TAB ONE (07:50)
[2020-07-07] MEDS ORDERED: Famotidine 20 MG TAB ONE (07:51)
[2020-07-07] MEDS ORDERED: metFORMIN 500 MG TAB ONE ×2 (07:51→07:59)
[2020-07-07] MEDS ORDERED: HYDROcodone/Acetaminophen 5/325 mg Tablet ONE ×2 (07:52→12:28)
[2020-07-07] MEDS: HYDROcodone/Acetaminophen 5/325 mg Tablet PO PRN ×3 (08:09→16:44)
--- NOTE | 2020-07-07 11:46 | RAD ---
EXAM: CHEST ONE VIEW HISTORY: Post CABG. Follow-up evaluation. COMPARISON: 07/06/2020 FINDINGS: Right-sided vascular catheter remains in place. Postoperative changes related to median sternotomy ar e again seen. Cardiac silhouette is magnified by projection but does appear at the upper limits of normal in size to borderline enlarged. This is a stable finding. Pulmonary vasculature is within norm al limits. Subsegmental atelectasis is seen at the medial right lung base. There is question of a small left pleural effusion with atelectasis left lung base. No consolidation is seen. No significant interval change from prior study. IMPRESSION:: Overall stable chest.
--- NOTE | 2020-07-07 13:33 | PDOC.HOSPP ---
- Subjective Encounter Date: 07/07/20 Encounter Time: 13:31 Subjective: Mr. Mccarthy was seen today in follow-up for diabetes management. He does not have any complaints. He denies chest pain or difficulty breathing. - Objective Vital Signs & Weight: Vital Signs (12 hours) Pulse Pulse BP BP Pulse Ox Pulse Ox 07/07/20 10:18 112 H 117 H 166/91 H 167/91 H 96 97 Weight Weight 231 lb 11.2 oz Most Recent Monitor Data Heart Rate from ECG 96 NIBP 119/68 NIBP BP-Mean 85 Respiration from ECG 13 SpO2 96 I&O: 07/06/20 07/07/20 07/08/20 06:59 06:59 06:59 Intake Total 1582.5 440 Output Total 1070 290 Balance 512.5 150 Result Diagrams: 07/06/20 04:00 07/06/20 21:28 Additional Labs: Accuchecks 07/06/20 16:29 POC Glucose 227 H Hospitalist ROS - Medication Medications: Active Medications Generic Name Dose Route Start Last Admin Trade Name Freq PRN Reason Stop Dose Admin Hydrocodone Bitart/Acetaminophen 2 tab 07/04/20 14:00 07/06/20 20:34 Hydrocodone/Acetaminophen 5/325 Mg Tablet PO 2 tab Q4H PRN Administration Severe Pain (7-10) Aspirin 325 mg 07/05/20 09:00 07/06/20 09:16 Aspirin 325 Mg Tab PO 325 mg DAILY [facility] Administration Atorvastatin Calcium 10 mg 07/06/20 21:00 07/06/20 20:34 Atorvastatin Calcium 10 Mg Tab PO 10 mg HS [facility] Administration Enoxaparin Sodium 40 mg 07/06/20 21:00 07/06/20 20:33 Enoxaparin Sodium 40 Mg/0.4 Ml Syringe SC 40 mg 2100 [facility] Administration Famotidine 20 mg 07/06/20 21:00 07/06/20 20:35 Famotidine 20 Mg Tab PO 20 mg BID [facility] Administration Dobutamine HCl/Dextrose 250 mls @ 9.52 mls/hr 07/05/20 11:00 07/05/20 12:02 Dobutamine 500 Mg/250 Ml IVPB 250 mls INF [facility] Administration Protocol 3 MCG/KG/MIN Insulin Glargine 25 units/ 0.25 mls @ 0 mls/hr 07/06/20 21:00 07/06/20 20:33 Miscellaneous Medication SC 0.25 mls HS [facility] Administration Insulin Human Regular 0 units 07/06/20 15:00 07/06/20 16:53 Insulin Regular 300 Units/3 Ml Vial SC 6 unit Q4H PRN Administration POST OP SLIDING SCALE Protocol Metformin HCl 1,000 mg 07/06/20 17:00 07/06/20 16:10 Metformin 500 Mg Tab PO 1,000 mg BID-WM [facility] Administration Pioglitazone HCl 45 mg 07/06/20 09:00 07/06/20 09:17 Pioglitazone Hcl 45 Mg Tab PO 45 mg DAILY [facility] Administration Hospitalist Exam Vitals: Vital Signs (12 hours) Pulse Pulse BP BP Pulse Ox Pulse Ox 07/07/20 10:18 112 H 117 H 166/91 H 167/91 H 96 97 Weight Weight 231 lb 11.2 oz Most Recent Monitor Data Heart Rate from ECG 96 NIBP 119/68 NIBP BP-Mean 85 Respiration from ECG 13 SpO2 96 General Appearance: NAD, awake alert Eye: PERRL, anicteric sclera Heart: RRR, no murmur, no gallops, no rubs, normal peripheral pulses Respiratory: CTAB, no wheezes, no rales, no ronchi, normal chest expansion, no tachypnea, normal percussion Gastrointestinal: soft, non-tender, non-distended, normal bowel sounds Extremities: no cyanosis, 1+ LE edema (good d.p. pulses bilaterally no lesions) Hosp A/P (1) Diabetes mellitus type 2 in nonobese Code(s): E11.9 - TYPE 2 DIABETES MELLITUS WITHOUT COMPLICATIONS Status: Chronic (2) CAD (coronary artery disease) Code(s): I25.10 - ATHSCL HEART DISEASE OF [place] CORONARY ARTERY W/O ANG PCTRS Status: Chronic (3) S/P CABG x 3 Code(s): Z95.1 - PRESENCE OF AORTOCORONARY BYPASS GRAFT Status: Acute - Plan * Diabetes mellitus type 2- continue Metformin, Actos, and Lantus. His blood glucose is a bit high, but it may take metformin a day or two to reach maximal effectiveness * STEMI- clincally stable- he is post CABG and hemodynamically stable -continue as per CV Surgery and Cardiology recommendations
[2020-07-07 14:31] LABS: Anion Gap 12 mmol/L (10-20); BUN (Urea Nitrogen) 36 mg/dL (8.4-25.7); Calc. Creatinine Clearance 84 mL/min (70-130); Calcium 8.1 mg/dL (7.8-10.44); Carbon Dioxide 23 mmol/L (23-31); Chloride 102 mmol/L (98-107); Sodium 132 mmol/L (136-145)
[2020-07-07 14:32] LABS: Glucose 196 mg/dL (80-115)
[2020-07-07] MEDS: metFORMIN 500 MG TAB PO SCH ×2 (14:43→16:44)
[2020-07-07] MEDS: Aspirin 325 MG TAB PO SCH (14:43)
[2020-07-07] MEDS: Pioglitazone HCl 45 MG TAB PO SCH (14:43)
[2020-07-07] MEDS: Famotidine 20 MG TAB PO SCH ×2 (14:43→22:40)
[2020-07-07] MEDS: Furosemide 40 MG TAB PO SCH (14:43)
[2020-07-07] MEDS: Insulin Glargine 25 UNITS in Pre-Filled Syringe 1 EACH SC SCH ×2 (14:43→22:39)
[2020-07-07] MEDS: Insulin Regular 300 UNITS/3 ML VIAL SC PRN (15:01)
[2020-07-07] MEDS: Enoxaparin Sodium 40 MG/0.4 ML SYRINGE SC SCH (22:39)
[2020-07-07] MEDS: Atorvastatin Calcium 10 MG TAB PO SCH (22:40)
[2020-07-08] MEDS ORDERED: Polyethylene Glycol 3350 17 GM Packet PO SCH (05:30)
[2020-07-08] MEDS: HYDROcodone/Acetaminophen 5/325 mg Tablet PO PRN (06:43)
[2020-07-08 08:03] VITALS: BP 144/78; TEMP 98.4
[2020-07-08 08:04] LABS: Glucose 127 mg/dL (80-115)
[2020-07-08] MEDS: Pioglitazone HCl 45 MG TAB PO SCH (08:05)
[2020-07-08] MEDS: Aspirin 325 MG TAB PO SCH (08:05)
[2020-07-08] MEDS: Famotidine 20 MG TAB PO SCH (08:05)
[2020-07-08] MEDS: metFORMIN 500 MG TAB PO SCH (08:06)
[2020-07-08] MEDS: Furosemide 40 MG TAB PO SCH (08:06)
--- NOTE | 2020-07-08 08:06 | DIS ---
DATE OF ADMISSION: 07/04/2020 DATE OF DISCHARGE: 07/08/2020 DIAGNOSES: 1. Diabetes mellitus. 2. Hypertension. 3. Dyslipidemia. 4. Coronary artery disease. 5. Acute ST-elevation myocardial infarction. PROCEDURES: 1. Cardiac catheterization. 2. Emergency coronary artery bypass grafting x3 - left internal mammary artery to LAD, saphenous vein graft to diagonal and terminal OM. CHIEF COMPLAINT: Mr. Mccarthy presented through the emergency department, was taken for cardiac catheterization, and subsequently taken for emergency coronary artery bypass grafting on 07/04. Postoperatively, he has done well. He has had no rhythm disturbances. At the time of discharge, he is ambulatory, tolerating regular diet, having good bowel and bladder function. Incisions are clean, dry without evidence of infection. DISCHARGE MEDICATIONS: Include: 1. Aspirin 325 mg daily. 2. Pravastatin 40 mg at bedtime. 3. Metformin 1000 mg b.i.d. 4. Actos 45 mg daily. 5. Tramadol 50 mg q.12. His blood pressure will not tolerate beta-samuel or ELIZABETH inhibitor at this point. FOLLOWUP: Follow up is with me in 2 weeks, Dr. Paez in a month. Job ID: [id number]
[2020-07-08] MEDS: Insulin Glargine 25 UNITS in Pre-Filled Syringe 1 EACH SC SCH (08:48)
[2020-07-08] MEDS ORDERED: Lisinopril 10 MG TAB PO SCH ×2 (10:00→10:15)
[2020-07-08] MEDS ORDERED: Carvedilol 3.125 MG TAB PO SCH ×2 (10:15→17:00)
[2020-07-09] MEDS ORDERED: Lisinopril 10 MG TAB PO SCH (09:00)
--- NOTE | 2020-07-09 15:21 | EKG ---
Test Reason : S/P CABG Blood Pressure : / mmHG Vent. Rate : 096 BPM Atrial Rate : 096 BPM P-R Int : 178 ms QRS Dur : 100 ms QT Int : 384 ms P-R-T Axes : 056 042 053 degrees QTc Int : 485 ms Sinus rhythm with occasional Premature ventricular complexes Possible Inferior infarct , age undetermined Abnormal ECG No previous ECGs available Confirmed by TSERING HARRIS (2) on 07/09/2020 3:21:24 PM Referred By: TAMMY VERDUGO Confirmed By:TSERING HARRIS
--- NOTE | 2020-07-09 20:16 | DIS ---
DATE OF ADMISSION: 07/04/2020 DATE OF DISCHARGE: 07/08/2020 DISCHARGE DISPOSITION: Home. DISCHARGE DIAGNOSES: 1. ST-segment elevated myocardial infarction. 2. Three-vessel bypass. 3. Diabetes mellitus. 4. Hypertension. 5. Dyslipidemia. DISCHARGE MEDICATIONS: Include; 1. Aspirin 325 mg daily. 2. Pravastatin 40 mg at bedtime. 3. Metformin 1000 mg p.o. b.i.d. 4. Actos 45 mg daily. 5. Tramadol 50 mg q.12. PROCEDURES DONE DURING ADMISSION: The patient had a cardiac catheterization. The patient also had a three-vessel coronary artery bypass grafting with a left internal mammary artery to the LAD and a saphenous vein graft to the diagonal and terminal OM. The patient also had an echocardiogram at the time of discharge, in which the ejection fraction was estimated at 30% to 35%. There was diastolic dysfunction septal akinesis and inferior wall akinesis. CODE STATUS: Full code. ALLERGIES: NO KNOWN DRUG ALLERGIES. HOSPITAL COURSE: Mr. Mccarthy is a pleasant 60-year-old gentleman, who was admitted to the hospital with chest pain. He was found to have an ST-segment elevated [place]. Cardiology was consulted and he went emergently to cardiac catheterization. He was found to have three-vessel coronary artery disease and Vascular Surgery was consulted. The patient underwent three-vessel bypass surgery. He had an uneventful postoperative course and was subsequently able to be discharged home on 07/08/2020 in good condition to follow up with Dr. Rodrigues and Dr. Paez as instructed. Job ID: [id number]
== END 2020-07-08 10:07 | disposition home or self-care (01) | DRG 234 ==
LOC: ERS 07:30 → CCL 08:19 → CCU 14:00 → 2NO 07-06 14:48
PROVIDERS: ADMIT Internal Medicine Cardiovascular Disease; ATTEND Internal Medicine Cardiovascular Disease
PROC: 02100Z9 Bypass Coronary Artery, One Artery from Left Internal Mammary, Open Approach (ICD-10-PCS; principal; 2020-07-04)
PROC: 4A023N7 Measurement of Cardiac Sampling and Pressure, Left Heart, Percutaneous Approach (ICD-10-PCS; 2020-07-04)
PROC: 021109W Bypass Coronary Artery, Two Arteries from Aorta with Autologous Venous Tissue, Open Approach (ICD-10-PCS; 2020-07-04)
PROC: 06BQ4ZZ Excision of Left Saphenous Vein, Percutaneous Endoscopic Approach (ICD-10-PCS; 2020-07-04)
PROC: 5A1221Z Performance of Cardiac Output, Continuous (ICD-10-PCS; 2020-07-04)
PROC: B2011ZZ Plain Radiography of Multiple Coronary Arteries using Low Osmolar Contrast (ICD-10-PCS; 2020-07-04)
DX: I21.19 ST elevation (STEMI) myocardial infarction involving other coronary artery of inferior wall (principal); I12.9 Hypertensive chronic kidney disease with stage 1 through stage 4 chronic kidney disease, or unspecified chronic kidney disease; E11.22 Type 2 diabetes mellitus with diabetic chronic kidney disease; I25.5 Ischemic cardiomyopathy; I25.10 Atherosclerotic heart disease of native coronary artery without angina pectoris; E78.5 Hyperlipidemia, unspecified; N18.9 Chronic kidney disease, unspecified; I95.9 Hypotension, unspecified; Z90.49 Acquired absence of other specified parts of digestive tract; Z87.891 Personal history of nicotine dependence; Z79.4 Long term (current) use of insulin
CPT/HCPCS: 36415; 36416; 36430; 71045; 80048; 80053; 82550; 82553; 82805; 82947; 84484; 85025; 85347; 85610; 85730; 86850; 86900; 86901; 87635; 90471; 90670; 93005; 93010; 93306; 93458; 93798; 94150; 96365; G0009; J0171; J0690; J1100; J1250; J1642; J1644; J1650; J1815; J1885; J2001; J2150; J2250; J2260; J2405; J2440; J2720; J3010; J3370; J3475; J3480; J3490; J7050; P9045; Q9967; S0017; S0020; S0028; U0003; U0005